=== PATIENT | female | born 1960 | race Caucasian/White ===

== ENCOUNTER 2025-06-26 16:24 | Inpatient (IN) | payer OTHER ==
[~2025-06-26] VITALS: Ht 160 cm; Wt 80.4 kg
[2025-06-26 18:35] LABS: PLATELET COUNT (AUTO) 185 K/uL (150-450); RED BLOOD CELL COUNT(AUTO) 5.02 MIL/uL (4.00-5.20); RED CELL DISTRIBUTION WIDTH 14.7 % (11.5-14.5); WHITE BLOOD COUNT (AUTO) 6.4 K/uL (4.5-11.0)
[2025-06-26 18:46] LABS: CALCIUM, TOTAL 9.6 mg/dL (8.8-10.5); CREATININE 0.81 mg/dL (0.60-1.30); GLOMERULAR FILTR. RATE CALC > 60 mL/min (>60); GLUCOSE,RANDOM 106 mg/dL (70-110); SODIUM SERUM 137 mmol/L (136-145); UREA NITROGEN, BLOOD 20 mg/dL (7-18)
[2025-06-26 18:52] LABS: ASPARTATE AMINOTRANSFERASE 16.0 U/L (15-37); TOTAL PROTEIN, SERUM 7.8 g/dL (6.4-8.2)
[2025-06-26 18:54] LABS: TROPONIN I-HIGH SENSITIVITY 6 ng/L (<51)
[2025-06-26] MEDS ORDERED: ONDANSETRON HCL 4 MG/2 ML VIAL IVP PRN (19:15)
[2025-06-26] MEDS: NITROGLYCERIN 2% (1 GM=INCH) OINTMENT PACKET TP SCH (19:24)
[2025-06-26] MEDS: ACETAMINOPHEN 325 MG TABLET PO PRN (19:43)
[2025-06-26 19:59] LABS: APPEARANCE,URINE HAZY (CLEAR); GLUCOSE, URINE (UA) NEGATIVE (NEGATIVE); LEUKOCYTE ESTERASE ,URINE SMALL (NEGATIVE); NITRATE,URINE NEGATIVE (NEGATIVE); OCCULT BLOOD,URINE NEGATIVE (NEGATIVE); PH,URINE DRUG SCREEN 7.0 (5.0-8.0); SPECIFIC GRAVITIY, URINE 1.016 (1.003-1.030)
[2025-06-26 20:05] LABS: AMPHET/METH SCREEN,URINE NEGATIVE (NEGATIVE); BARBITURATE SCREEN, URINE NEGATIVE (NEGATIVE); CANNABINOID SCREEN,URINE POSITIVE (NEGATIVE); COCAINE SCREEN,URINE NEGATIVE (NEGATIVE); METHADONE SCREEN, URINE NEGATIVE (NEGATIVE)
[2025-06-26 20:06] LABS: ALCOHOL, URINE DRUG SCREEN NEGATIVE (NEGATIVE)
[2025-06-26 20:26] LABS: SQUAMOUS EPITHELIAL CELL,UR Few /LPF (None Seen)
[2025-06-26] MEDS: DOCUSATE SODIUM 100 MG CAPSULE PO SCH (21:00)
[2025-06-26 22:00] VITALS: BP 154/80; PULSE 86; RESP 20; TEMP 97.7; O2SAT 98
[2025-06-27 04:50] VITALS: BP 117/59; PULSE 68; RESP 18; TEMP 98.4; O2SAT 96
[2025-06-27 06:49] LABS: PLATELET COUNT (AUTO) 176 K/uL (150-450); RED BLOOD CELL COUNT(AUTO) 4.88 MIL/uL (4.00-5.20); RED CELL DISTRIBUTION WIDTH 14.3 % (11.5-14.5); WHITE BLOOD COUNT (AUTO) 6.3 K/uL (4.5-11.0)
[2025-06-27 07:28] LABS: CALCIUM, TOTAL 8.9 mg/dL (8.8-10.5); CREATININE 0.72 mg/dL (0.60-1.30); GLOMERULAR FILTR. RATE CALC > 60 mL/min (>60); GLUCOSE,RANDOM 94 mg/dL (70-110); SODIUM SERUM 138 mmol/L (136-145); UREA NITROGEN, BLOOD 19 mg/dL (7-18)
[2025-06-27 07:57] VITALS: BP 135/61; PULSE 64; RESP 18; TEMP 98.1; O2SAT 98
[2025-06-27 12:00] VITALS: BP 122/64; PULSE 66; RESP 17; TEMP 98; O2SAT 96
[2025-06-27 15:38] VITALS: BP 115/71; PULSE 68; RESP 18; TEMP 97.9; O2SAT 98
[2025-06-27 17:05] VITALS: BP 164/79; PULSE 66; RESP 20; TEMP 97.7; O2SAT 98
[2025-06-27 19:25] VITALS: BP 134/65; PULSE 60; RESP 18; TEMP 98.1; O2SAT 98
[2025-06-27] MEDS: ISOSORBIDE MONONITRATE 30 MG ER TABLET PO SCH (21:00)
[2025-06-27 21:01] LABS: GLUCOMETER DEV NAME(LOC) 5N.1D; GLUCOSE,POINT OF CARE 108 MG/DL (70-110)
[2025-06-28 07:18] LABS: PLATELET COUNT (AUTO) 171 K/uL (150-450); RED BLOOD CELL COUNT(AUTO) 4.99 MIL/uL (4.00-5.20); RED CELL DISTRIBUTION WIDTH 14.3 % (11.5-14.5); WHITE BLOOD COUNT (AUTO) 5.5 K/uL (4.5-11.0)
[2025-06-28 07:34] LABS: CALCIUM, TOTAL 9.1 mg/dL (8.8-10.5); CREATININE 0.75 mg/dL (0.60-1.30); GLOMERULAR FILTR. RATE CALC > 60 mL/min (>60); GLUCOSE,RANDOM 105 mg/dL (70-110); SODIUM SERUM 138 mmol/L (136-145); UREA NITROGEN, BLOOD 18 mg/dL (7-18)
[2025-06-28 08:28] VITALS: BP 137/66; PULSE 51; RESP 18; TEMP 97.7; O2SAT 98
[2025-06-28] MEDS ORDERED: CEPH-558 PO (12:19)
[2025-06-28] MEDS ORDERED: LISI-894 PO (12:19)
[2025-06-28] MEDS: CefTRIAXone 1 GM/DEXTROSE 50 ML IV ONE (12:45)
[2025-06-28 16:57] VITALS: BP 133/67; PULSE 68; RESP 18; TEMP 98.1; O2SAT 98
== END 2025-06-28 18:38 | DRG 305 ==
LOC: EMS 16:34 → EDH 19:00 → 5N 21:48 → 6N 06-27 17:08
PROVIDERS: ADMIT Internal Medicine; ATTEND Internal Medicine
DX: I16.0 Hypertensive urgency (principal); E66.9 Obesity, unspecified; R39.2 Extrarenal uremia; N30.00 Acute cystitis without hematuria; Z91.199 Patient's noncompliance with other medical treatment and regimen due to unspecified reason; I25.2 Old myocardial infarction; Z87.891 Personal history of nicotine dependence; Z68.31 Body mass index [BMI] 31.0-31.9, adult
CPT/HCPCS: 71045; 71250; 80048; 80076; 80307; 81001; 82962; 83735; 83880; 84145; 84484; 85025; 87086; 93005; 99285; J0360; J0696; 36415-L1; 36415-TC